=== PATIENT | female | born 1980 | race Hispanic/Latino ===

== ENCOUNTER 2017-04-29 19:02 | Observation (INO) | payer BC ==
[~2017-04-29 19:02] MED LIST: ISOVUE-370 76%-LOCM 1 ML ONE
[2017-04-29 19:44] LABS: #Basophils 0.2 thou/uL (0.0-0.2); #Eosinphils 0.3 thou/uL (0.0-0.7); #Lymphocytes 3.8 thou/uL (1.20-3.40); #Monocytes 0.8 thou/uL (0.11-0.59); #Neutrophils 5.2 thou/uL (1.40-6.50); %Basophils 1.9 % (0.0-1.0); %Eosinophils 2.9 % (0.0-10.0); %Lymphocytes 37.3 % (21.0-51.0); %Monocytes 7.4 % (0.0-10.0); %Neutrophils 50.5 % (42.0-75.0); Hemoglobin 13.1 g/dL (12.0-16.0); Mean Corpuscular HGB CONC 32.5 g/dL (32.0-36.0); Mean Corpuscular Hemoglobin 29.7 pg (27.0-31.0); Mean Corpuscular Volume 91.2 fl (81.0-99.0); Mean Platelet Volume 6.7 fL (7.4-10.4); Platelet Count 444 thou/uL (130-400); RBC Distribution Width 12.1 % (11.5-14.5); Red Blood Cell (RBC) Count 4.43 mill/uL (4.20-5.40); White Blood Cell (WBC) Count 10.2 thou/uL (4.8-10.8)
[2017-04-29] MEDS ORDERED: Ondansetron HCl/PF 4 MG/2 ML Vial ONE (19:47)
[2017-04-29] MEDS ORDERED: Fentanyl 100 MCG/2 ML VIAL ONE (19:47)
[2017-04-29 19:50] LABS: BHCG - Serum Negative (NEGATIVE); Pregs Control Background? CLEAR/WHITE (CLR/WHITE); Pregs Control Bar Appear? YES (CONTROL BAR)
[2017-04-29 20:06] LABS: CKMB 2.6 ng/mL (0-6.6); Troponin I Less than 0.010 ng/mL (< 0.028)
[2017-04-29 20:07] LABS: ALT (SGPT) 34 U/L (8-55); AST (SGOT) 27 U/L (5-34); Albumin 4.3 g/dL (3.5-5.0); Alkaline Phosphatase 52 U/L (40-150); Anion Gap 12 mmol/L (10-20); BUN (Urea Nitrogen) 11 mg/dL (7.0-18.7); Bilirubin, Total 0.4 mg/dL (0.2-1.2); CK (CPK) 170 U/L (29-168); Calc. Creatinine Clearance 0 mL/min (70-130); Calcium 9.6 mg/dL (7.8-10.44); Carbon Dioxide 24 mmol/L (22-29); Chloride 107 mmol/L (98-107); Estimated GFR-MDRD 55; Globulin 3.4 g/dL (2.4-3.5); Glucose 96 mg/dL (70-105); Lipase 41 U/L (8-78); Magnesium 2.3 mg/dL (1.6-2.6); Potassium 4.1 mmol/L (3.5-5.1); Protein, Total 7.7 g/dL (6.0-8.3); Sodium 139 mmol/L (136-145)
[2017-04-29 20:33] LABS: Bilirubin Negative (Negative); Blood, Urine Negative (Negative); Clarity CLEAR (Clear); Glucose, Urine (Dipstick) Negative (Negative); Leukocyte Negative (Negative); Nitrite Negative (Negative); Protein, Urine (Dipstick) Negative (Neg-Trace); Specific Gravity, Urine 1.009 (1.002-1.036); Urobilinogen 0.2 mg/dL (0.2-1.0)
[2017-04-29 20:35] LABS: Pregnancy Test - Urine (BHCG) Negative (Negative); Pregu Control Background? CLEAR/WHITE (CLR/WHITE); Pregu Control Bar Appear? YES (CONTROL BAR); Specific Gravity 1.009 (1.002-1.036)
--- NOTE | 2017-04-29 21:25 | CT ---
CT ABDOMEN AND PELVIS WITH IV CONTRAST 04/29/17 HISTORY: Right flank pain for seven days. FINDINGS: There is mild bibasilar atelectasis. Osseous structures appear intact. Postsurgical changes related to right nephrectomy are noted. The liver, spleen, pancreas, bilateral adrenal glands, left kidney and abdominal aorta demonstrate a normal CT appearance. The urinary bladder is incompletely distended. The uterus has a normal appearance for patient's age. There is a 3.4 cm hypodense lesion in the left adnexa which may represent a left ovarian cyst althoug h the attenuation coefficient is not completely fluid density. Hemorrhagic left ovarian cyst is a pos sibility. The appendix is mildly prominent. There is no periappendiceal inflammatory changes seen to suggest ap pendicitis. No free fluid, fluid collection or lymphadenopathy is seen in the abdomen or pelvis. Incidental note is made of a retroaortic left renal vein. IMPRESSION: 1. No acute findings in the abdomen or pelvis. 2. Postsurgical changes related to right nephrectomy. 3. Left adnexal cystic structures probably related to left ovarian cyst. 4. Mild prominence of the appendix, but no periappendiceal inflammatory changes are seen. this i s probably within normal limits for the patient. POS: [facility]
[2017-04-29] MEDS ORDERED: Acetaminophen 500 MG TAB PO PRN (22:26)
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
[2017-04-29] MEDS ORDERED: Promethazine HCl 25 MG/ML VIAL IM/IV PRN (23:00)
--- NOTE | 2017-04-29 23:23 | ULT ---
PELVIC ULTRASOUND 04/29/17 HISTORY: Left sided pelvic pain. FINDINGS: There is nonspecific heterogeneity of the uterus. No mass is visualized. Nabothian cysts are seen in the region of the cervix. The uterus measures 9.7 cm x 5.1 cm x 6.1 cm. The right ovary demonstrates a normal sonographic appearance with peripheral follicles seen. The righ t ovary measures 4.3 cm x 2.2 cm x 3.3 cm. The left ovary measures 4 cm x 3.4 cm x 3.8 cm. There s a 3 cm anechoic structure seen in the left ovary demonstrating sonographic characteristics most compati ble with a cyst. Doppler evaluation with spectral analysis and color flow evaluation does demonstrate arterial and holly ous flow in the right ovary. However, arterial and venous flow was unable to be detected in the left ovary. Given inability to detect flow, ovarian torsion of the left ovary cannot be excluded. Left ova ry is not particularly enlarged. In addition, there is no free fluid seen in the pelvis. The endometr ial stripe measures 0.9 cm which is within normal limits in a menstruating female patient. IMPRESSION: 1. Inability to detect arterial or venous flow in the left ovary. Given inability to detect flow , ovarian torsion on the left cannot be excluded. However, the left ovary is not enlarged, and there is no free fluid seen in the pelvis. 2. Normal appearing right ovary with arterial and venous flow documented. 3. Mild nonspecific heterogeneity of the uterus, but the uterus otherwise has a normal sonograph ic appearance. 4. Above findings discussed with Dr. Holm in the Emergency Department on 04/29/17 at 2229 hours . POS: [facility]
[2017-04-30] MEDS: Lactated Ringer's 1,000 ML IV SCH ×2 (00:22→01:30)
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
[2017-04-30] MEDS ORDERED: FLU VACC QS2017-18 36 mo. & older 0.5 ML SYRINGE IM ONE (09:00)
[2017-04-30 09:54] VITALS: BP 112/58; TEMP 98.5
== END 2017-04-30 09:56 | disposition home or self-care (01) ==
LOC: ERS 19:02 → 3SE 22:24
PROVIDERS: ADMIT Obstetrics & Gynecology; ATTEND Obstetrics & Gynecology
DX: N73.6 Female pelvic peritoneal adhesions (postinfective) (principal); N83.8 Other noninflammatory disorders of ovary, fallopian tube and broad ligament; F17.210 Nicotine dependence, cigarettes, uncomplicated; F32.9 Major depressive disorder, single episode, unspecified; Z90.5 Acquired absence of kidney; Z98.890 Other specified postprocedural states
CPT/HCPCS: 74177; 76856; 80053; 81003; 81025; 82550; 82553; 83605; 83690; 83735; 84484; 84703; 85025; 87086; 90471; 90682; 96361; 96374; 96375; 99406; G0008; G0378; J0595; J2405; J3010; Q2036

== ENCOUNTER 2017-07-17 20:43 | Emergency (ER) | payer BC ==
[2017-07-17] MEDS ORDERED: Ketorolac Tromethamine 60 MG/2 ML VIAL ONE (21:57)
--- NOTE | 2017-07-17 22:10 | RAD ---
LUMBAR SPINE 3 VIEWS: Date: 07/17/17 PROVIDED CLINICAL HISTORY: Low back pain. FINDINGS: Five non-rib bearing lumbar-type vertebral bodies are present. Lumbar alignment appears normal. Verte bral body heights appear preserved. Surgical clips are seen in the right mid abdomen. No lytic or hank stic lesions are seen. IMPRESSION: No evidence for an acute osseous abnormality. POS: [facility]
== END 2017-07-17 22:59 | disposition home or self-care (01) ==
LOC: ERS 20:43
DX: M54.5 Low back pain (principal); F17.210 Nicotine dependence, cigarettes, uncomplicated; Z79.899 Other long term (current) drug therapy
CPT/HCPCS: 72100; 96372; J1885